=== PATIENT | male | born 1990 | race Caucasian/White ===

== ENCOUNTER 2018-09-30 07:53 | Emergency (ER) | payer OTHER ==
[2018-09-30 08:06] VITALS: BP 145/77; PULSE 85; TEMP 98; BMI 24.3
--- NOTE | 2018-09-30 09:48 | PDOC ---
History of Present Illness - General Chief Complaint: Psychiatric Stated Complaint: NUMBNESS Time Seen by Provider: 09/30/18 08:19 History Source: Patient Exam Limitations: No Limitations - History of Present Illness Initial Comments: 09/30/18 09:27 28 yo M / no sig PMHx, does not smoke cigarettes, smokes marijuana, comes in c/ o sudden onset of chest tightness, throat tightness, bilateral arm numbness and tingling, heart racing with lightheadedness which all started while driving 45ns ago. 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 Now most of his symptoms resolved except from mild throat tightness. Now no CP, no SOB, no abdominal pain, no back pain, no headache. NO LOC, no syncope. (+)prior h/o similar symptoms, was told it was "throat spasms". No h/o anxiety/panic attacks but pt says that it happens to him when he starts thinking about his problems. Pt also says that he took azithromycin 1 g yesterday for chlamydia prophylaxis. FHx: [place], father at 56yo 09/30/18 10:00 Past History - Past Medical History Allergies/Adverse Reactions: Allergies Allergy/AdvReac Type Severity Reaction Status Date / Time No Known Allergies Allergy Verified 09/30/18 07:59 Home Medications: Ambulatory Orders NK [No Known Home Medication] 09/30/18 COPD: No - Surgical History Gastric Stapling: Yes - Suicide/Smoking/Psychosocial Hx Smoking History: Never smoked Review of Systems - Review of Systems Able to Perform ROS?: Yes Constitutional: No: Chills, Fever, Malaise, Night Sweats HEENTM: No: Eye Pain, Recent change in vision, Throat Pain (mild throat tightness) Respiratory: Yes: Shortness of Breath (mild). No: Cough Cardiac (ROS): Yes: Palpitations (mild). No: Chest Pain, Chest Tightness ABD/GI: No: Diarrhea, Nausea, Vomiting, Abdominal cramping : No: Dysuria, Hematuria Musculoskeletal: No: Back Pain Integumentary: No: Rash Neurological: No: Headache, Numbness (none now), Dizziness (none now) Psychiatric: No: Change in Appetite Endocrine: No: Unexplained Weight Loss *Physical Exam - Vital Signs Last Vital Signs Temp Pulse Resp BP Pulse Ox 98 F 85 18 145/77 100 09/30/18 07:57 09/30/18 07:57 09/30/18 07:57 09/30/18 07:57 09/30/18 07:57 - Physical Exam General Appearance: Yes: Nourished. No: Apparent Distress HEENT: positive: JEREL, Normal ENT Inspection, Normal Voice. negative: Pale Conjunctivae, Scleral Icterus (R), Scleral Icterus (L) Neck: positive: Supple. negative: Decreased range of motion, Tender midline Respiratory/Chest: positive: Lungs Clear, Normal Breath Sounds. negative: Respiratory Distress, Accessory Muscle Use Cardiovascular: positive: Regular Rhythm, Regular Rate Gastrointestinal/Abdominal: positive: Normal Bowel Sounds, Soft. negative: Tender Musculoskeletal: positive: Normal Inspection. negative: CVA Tenderness, Decreased Range of Motion Extremity: positive: Normal Capillary Refill, Normal Inspection, Normal Range of Motion. negative: Tender, Pedal Edema Integumentary: positive: Normal Color, Dry. negative: Jaundice, Rash Neurologic: positive: Fully Oriented, Alert, Normal Mood/Affect ED Treatment Course - LABORATORY CBC & Chemistry Diagram: 09/30/18 09:20 09/30/18 09:20 - RADIOLOGY Radiology Studies Ordered: Category Date Time Status CHEST PA & LAT [RAD] Stat Radiology 09/30/18 09:20 Ordered Medical Decision Making - Medical Decision Making 09/30/18 10:05 28 yo M who smokes marijuana comes in w/ chest tightness, throat tightness, UE numbness/tignling which resolved, likely panic attack. Pt took zithromax yesterday, WIll R/O cardiac etiology, will do an EKG, 2 sets of labs and reassess Pt in NAD, looks comfortable at this time. 09/30/18 12:23 2nd set of cardiac enzymes ordered. Incident happened 5 hours ago. 09/30/18 14:07 Pt feels a lot better, all symptoms resolved. all labs WNLs Will discharge with mental health, cardio follow up. Recommendation to stop smoking marijuana Return for worsening/concerning symptoms. *DC/Admit/Observation/Transfer Diagnosis at time of Disposition: Anxiety, Palpitations - Discharge Dispostion Disposition: HOME Condition at time of disposition: Stable - Referrals Referrals: Adriel Foster NP [Nurse Practitioner] - Chandana Saldana MD [Staff Physician] - - Patient Instructions Additional Instructions: Return for worsening/concerning symptoms. All your labs and xrays, EKG were within normal limits. We recommend that you follow up with the mental health specialist, the aircraft loadmaster superintendent and your PCP as suggested. - Post Discharge Activity
[2018-09-30 10:01] LABS: BASO % 1.1 % (0-2.0); EOS % 1.9 % (0-4.5); HEMATOCRIT 46.8 % (35.4-49); HEMOGLOBIN 16.1 GM/dL (11.7-16.9); LYMPH % 29.8 % (8-40); MCH 30.8 pg (25.7-33.7); MCHC 34.3 g/dl (32.0-35.9); MEAN CELL VOLUME 89.8 fl (80-96); MEAN PLT VOLUME 7.7 fl (7.5-11.1); MONO % 12.6 % (3.8-10.2); NEUT % 54.6 % (42.8-82.8); PLATELET COUNT 399 K/MM3 (134-434); RBC 5.22 M/mm3 (4.00-5.60); RDW 13.8 % (11.9-15.9); WHITE BLOOD COUNT 5.5 K/mm3 (4.0-10.0)
[2018-09-30 10:34] LABS: ALK PHOS 70 U/L (45-117); ANION GAP 4 MMOL/L (8-16); BILIRUBIN,TOTAL 0.8 mg/dL (0.2-1); BLOOD UREA NITROGEN 14.8 mg/dL (7-18); CALCIUM 9.2 mg/dL (8.5-10.1); CHLORIDE 108 mmol/L (98-107); CO2 30 mmol/L (21-32); CREATININE 1.1 mg/dL (0.55-1.3); GLUCOSE,RANDOM 76 mg/dL (74-106); LIPASE 235 U/L (73-393); MAGNESIUM 2.2 mg/dL (1.8-2.4); PHOSPHOROUS 3.3 mg/dL (2.5-4.9); POTASSIUM 4.3 mmol/L (3.5-5.1); SGOT/AST 19 U/L (15-37); SGPT/ALT 22 U/L (13-61); SODIUM 143 mmol/L (136-145); TOT PROT 7.2 g/dl (6.4-8.2)
--- NOTE | 2018-09-30 15:48 | EKG ---
Test Reason : Blood Pressure : / mmHG Vent. Rate : 076 BPM Atrial Rate : 076 BPM P-R Int : 184 ms QRS Dur : 100 ms QT Int : 374 ms P-R-T Axes : 065 053 032 degrees QTc Int : 420 ms NORMAL SINUS RHYTHM NORMAL ECG NO PREVIOUS ECGS AVAILABLE Confirmed by MARIANO MCQUEEN, LEE ([id number]) on 09/30/2018 3:47:26 PM Referred By: Confirmed By:LEE QUINTANA MD
== END 2018-09-30 15:03 | disposition home or self-care (01) ==
LOC: JER 07:53
DX: F41.9 Anxiety disorder, unspecified (principal); R00.2 Palpitations
CPT/HCPCS: 36415; 71046-TC-FY; 80053; 82550; 83690; 83735; 84100; 84484; 85025; 93005; 93010; 99283-25